=== PATIENT | female | born 1985 | race Caucasian/White ===

== ENCOUNTER 2019-03-27 11:54 | Outpatient (CLI) | payer MEDICAID, SELFPAY ==
[2019-03-27 14:02] LABS: ALT 112 U/L (12-78); AST 36 U/L (15-37); Albumin 4.1 g/dL (3.4-5.0); Alkaline Phosphatase 125 U/L (46-116); Bilirubin, Total 0.4 mg/dL (0.2-1.0); TSH 4.87 uIU/mL (0.358-3.74); Total Protein 8.1 g/dL (6.4-8.2)
[2019-03-27 14:04] LABS: HCG Quant, Pregnancy < 1 mIU/mL (1-3)
[2019-03-27 14:12] LABS: Bilirubin, Direct 0.08 mg/dL (0.00-0.20)
[2019-03-28 10:51] LABS: Hep A Total Ab w Rflx IgM Negative (NEGAT)
[2019-03-28 11:05] LABS: HIV-1/2 Ag & Ab Screen Negative (NEGAT)
[2019-03-29 12:58] LABS: TB Interpretation Negative (NEGAT); TB1 Ag minus Nil 0.11 IU/mL; TB2 Ag minus Nil 0.14 IU/mL
== END 2019-03-27 12:14 ==
PROVIDERS: PCP Nurse Practitioner Family; Visit Provider Nurse Practitioner Family
DX: B18.2 Chronic viral hepatitis C (principal); E03.9 Hypothyroidism, unspecified; Z11.4 Encounter for screening for human immunodeficiency virus [HIV]
CPT/HCPCS: 36415; 80076; 86709; 87389; 84443; 84702; 86480

== ENCOUNTER 2019-03-27 12:39 | Outpatient (CLI) | payer MEDICAID, SELFPAY ==
--- NOTE | 2019-03-27 14:18 | W.CCNOTE ---
Date of service: 03/27/19 Time of Service: 11:18 [facility] Clinic Note Note: [facility] [address], [address] [place] [address] Initial [facility] Visit Information New or Remote Diagnosis of HCV (1-2 hours) Name: Jodie Talley [facility] Record #: [id number] Primary Care Provider: Austen Welch NP Date of : 1985 Date of Service: 03/27/2019 SUBJECTIVE: CC: ?I was DX w Hepatitis C at [facility] on 12/26/2018. I had more testing done through my PCP and I want to get it treated. I worry about giving it to someone else, like my kids if I get a cut or my fianc? but I hear it?s hard to get through sex. Should he be checked?? HPI: Jodie has about a 2 ? years IVDU HX, starting it when her opiate use disorder (OUD) to pills reached a tolerance level she could no longer afford or find enough pills to keep her out of with drawl, thus she went to heroin. She came into medication assisted treatment with methadone over a year ago and was dispensed 55 mg a day until she decided she did not want this medication, admitted herself to [facility] in November of this year and detoxed off of it by 5mg every 2 days until 15 mg and then had a further taper with Suboxone at 4mg for 2 days, then 2 mg and then off. She stayed for a few days and was then DCd to home. She felt so sick with WD persisting she could not work, she called [facility] and was restarted on MAT w Suboxone this time, is currently at 10 mg a day and having no identifiable with drawl symptoms. Her last IV use was over 6 months ago. On 01/18/19 she had further testing done through her PCP for HCV PCR and other testing. She waited for about a month and did not hear from her PCP?s office if she would be able to get an appointment with [facility] or [facility] to discuss HCV treatment as she has a detectable viral load. Her substance abuse counselor suggested she contact this clinic and she is relieved to be able to get further evaluation and treatment as indicated. ROS: Constitutional: She has a good appetite and has gained about 35 pounds since she stopped IV use ? she was 110# prior to stopping. She has night sweats which she says is no with drawl. Skin: Denies rashes or lesions. Has some tattoos which are all professionally done. Head: Has a H/O Migraine headaches but now rarely gets one since having ?Dath piercing of the ear lobe? over a year ago. No significant head injury HX. Eyes: Has glasses for reading and driving. Ears,Nose,Throat,Mouth: Denies any ENT problems. Teeth: Has one tooth that hurts when she eats sugar. Needs to see a dentist. Neck: Denies stiffness, pain or swelling. Cardiovascular: No chest pain or palpatations. Respiratory: has a ?smokers cough with periodic expectoration of crane sputum, never hemoptysis; gets ?winded? when walking up hills ow no dyspnea. Gastrointestinal: Has had some nausea and vomiting in the AMS which she also does not think is with drawl. Her bowels tend to be hard therese but she is moving them. She can get some sharp cramps in the left upper quad prior to BMs. Never bloody. Genitourinary: Denies any symptoms. Musculoskeletal: No joint aches, stiffness or swelling. Says he hands will stay somewhat swollen but she has a H/O injecting in to her hands, wrists, forearms and antecubital fossa and not just heroin but cocaine, javi and Wellbutrin. Endocrine: Has ?sluggish thyroid? and is on replacement. 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 Lymphatic: ?swelling of hands, denies H/O enlarged lymph nodes. Hematologic: Denies unusual bruising or bleeding, no H/O epistaxis. Allergic/Immunologic: Denies any symptoms. Allergies/Sensitivities: Augmenting ? says she can have PCN Current Medications: Levothyroxine 25 mcg a day, Prozac 40 mg a day, gabapentin 800mg up to tid for anxiety but does not take and denies abusing it IV or otherwise. ?I am all done with any of that.? Past medications Ineffective: NONE Past Medical History: 10 year H/O Hypothyroidism and off and on medication. After the of her second daughter, she needed less medication to be euthroid. Endometriosis and last year had ?cancer cells? in the endometrium. Past Surgical History: 2 C sections and BTL after the 2nd. Endometriosis TX w 6 Laparoscopies and then three years ago an endometrial ablation. Past Psychiatric History: Anxiety Depression even prior to her OUD. No suicidality. Social History/Demographics: Place of : [place], [place] Gender: Female at and currently Racial Distribution: Primary Language: Surinamese Secondary Language(s): None Current County, State of Residence: [place], [place] Marital Status: Engaged to Male sig other with whom she lives. He works evenings and nights, she works afternoons and evenings. Family Size: 2 in her home, her 2 daughters are living with their Father. She has visits with them weekly and hopes this will increase in the near future. Pets: 1 dog, 2 cats Housing: Stable Incarceration History: ?I never spent time in nursing home. I am on probation for my overdose, possession of illicit drugs and am wearing an ankle ?bracelet? due to my violating and getting caught driving. My Mother drives me now because I just want to do what I need to do.? History: None Highest Grade Completed: 3 years of college Able to read? 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 Health Insurance: [place] Medicaid, Other payment source? Self, Issues? Denies Substance Abuse History: - Tobacco: Y- Smoker: Type: Cigarettes Amount: 1 ppd and moving to quitting with vaping and reducing Nicotine / day with aa stepped program. - ETOH: Weekly: a couple times, Type: Wine Amount: 1-2 small glasses - Illicit Drug Use: If + Type(s): as in HPI Amount: varied over the years - RX Drug Dependence: if + Type(s) pills in the past ? not RXd to her. - IVDU Hx? Y Age of onset: 30 Last: 6 months ago - Overdose Hx? Y ? X1 ? Has Narcan Added Hx/Treatment: MAT now and stable. Has 2 Take Home doses a week and will be earning the responsibility ot have more as she is stable in [place] and UDSs are all appropriate. No Cocaine use for months. Other Psychosocial Considerations: P.O. is Torrie Hardy in [place]. ?She?s helpful? Family History ? some addiction Mother: borderline DM Father: COPD Siblings: 2 sisters- healthy Children: 2 daughters- halthy, youngest w intermittent Asthma Grand Parents: MGM just after a CVA and 2 MIs; had a H/O breast CA as well. GF ETOH Extended: MAunt- DM, MAunt #2- COPD Immunization History Tetanus UTD (TDAP) Hepatitis A Series unknown, Hepatitis B Series: #1, #2, #3 + Flu Vaccine: Has yearly Pneumovax & Prevnar 13 ? not sure if she has had Other: None Health Maintenance/ID Screening: PPD: neg in past; Last: Nov 2018 PAP: Cervical: Normal cervical cells ? Last 2-3 years ago Mammograms: NA Colonoscopy: NA OBJECTIVE Height: 5?0? Weight: 145# Temp: 98.9 Pulse: 72 Resp: 14 BP: 100/60 BMI: 30 General: AINAD, AAOx4, well-nourished. Skin: Clear w good turgor and no pitting edema of hands Head: normo cephalic Eyes: non icteric ENT: clear Mouth/Teeth: intact, no lesions Pharynx: clear Neck: supple CV/Pulses: 2/4, RRR, S1/S2- No MCRG Chest/Lungs: Clear all lobes Abdomen: NABS, ND, NT, no palpable OGM- Liver palpated out to 4 cm in MCL and does not cross the midline, smooth with non-palp edge. Extremities: hands w slight swelling but no erythema and no fresh track milan, very faded ow Musculoskeletal: FROM, no joint swelling or erythema Neuro: gait strong and steady, no tremor : NE Pelvic: NE Rectal: NE Lymphatic: No adenopathy Psych: Appearance: well groomed, stated age Eye Contact: good Attitude: cooperative Speech: normal Affect: appropriate, restricted, blunted, flat, expansive, labile, incongruent Mood: euthymic Memory: short-term intact, long-term intact Self-Perception: wnl Motor Activity: normal Orientation: intact Attention & Judgement: intact Thought Process: logical Thought Content: wnl Perceptions: wnl Insight: excellent Lab work results for 01/21/2019 done at [facility]: HCV RNA Quant 3,100 IU/ml HBV sAB +, sAg neg, cAb neg TBIL 0.5, DBIL 0.4, Alk Phos 104, AST 42, ALT 78, GGT 44, TP 7.7, ALB 4.2 ASSESSMENT/PLAN 1. HCV probably infected within the last 2 years but over 6 months ago. First+ HCV Ab test in Nov of this year and a low viral load in January. Probably indicated chronic active but will have her repeat the pcr now along with a test, a Quati-yeison and a Total HAV AB test and HIV 1-2 Ab. Will also check a TSH. I will contact her after these results are available and I have a consult with ID. I doubt she needs a Fibroscan unless she does need Rx Tx and her insurance requires it to pay for medication. Most likely she will be able to be treated with 8 weeks of medication. Advised to avoid ETOH until more is known of her HCV status and need for Tx. Discussed avoiding other hepato-toxins. 2. Severe OUD ? stable in MAT ? continue to dose daily with Suboxone and keep all appointments with [facility] counselor. Avoid all illicit drug use. Lab Work: To go to [facility] today for these further tests. Release of records: not needed at this point but may want to get [facility] lab results. Psychiatry referral: not needed. Provider of Care: Kisha Richardson, MSN, RAIL SWITCHMAN
== END 2019-03-27 12:59 ==
PROVIDERS: PCP Nurse Practitioner Family; Visit Provider Nurse Practitioner Family
DX: B18.2 Chronic viral hepatitis C (principal); F11.20 Opioid dependence, uncomplicated; Z79.899 Other long term (current) drug therapy
CPT/HCPCS: 99204